=== PATIENT | male | born 1955 | race Caucasian/White ===

== ENCOUNTER 2018-09-18 16:00 | Outpatient (RCR) | payer OTHER, SELFPAY ==
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
--- NOTE | 2018-09-13 17:58 | HP.PTREVAL_ITS ---
Sebastian Hawk MD, It has been my pleasure to treat MARGARITA PEREZ over the last 3 visits for SCIATICA. Please see the progress note below for an update on the physical therapy plan of care! Subjective: PATIENT REPORTS THAT SINCE HE WAS HERE LAST TIME HE FOLLOWED UP WITH HIS FAMILY PHYSICIAN, HAD AN MRI AFTER ABOUT 5 WEEKS AND REFERRED HIMSELF TO A SURGEON. PATIENT REPORTS HIS FAMILY DOCTOR TOLD HIM TO STOP PT AFTER THE MRI. THE SURGEON (DR. LORENZO) TOLD HIM HE HAD 3 CHOICES: SURGERY, DO NOTHING OR TRY A FEW PT VISITS FOR A HOME EX PROGRAM. PATIENT REPORTS HIS FAMILY DOCTOR RECOMMENDED PAIN MGMT BUT HE CHOSE NOT TO PURSUE IT AFTER SEEING THE SURGEON BECAUSE THE SURGEON DID NOT RECOMMEND IT. PATIENT REPORTS HE WANTS TO TRY PT. HE IS LEAVING TO GO [facility] Sep UNTIL DECEMBER 2018. PATIENT REPORTS HE IS FINALLY DOING BETTER. NO PAIN SITTING RIGHT NOW BUT RIGHT LE PAIN WITH WALKING. PATIENT REPORTS HE STILL CAN'T WALK NORMAL - I AM FIGHTING WITH IT. ABLE TO GET DRESSED, GET IN THE CAR AND DRIVE NORMALLY NOW. PATIENT REPORTS HE WAS TOLD L5S1 NERVE COMPRESSION RIGHT AND SPINAL STENOSIS. NEW ORDER REC'D FROM DR. LORENZO WITH DX OF: LUMBAR HERNIATED DISC, FORMAINAL STENOSIS AND LATERAL RECESS STENOSIS OF LUMBAR SPINE 2X'S A WEEK X 2 WEEKS. PATIENT REPORTS HE CAN NOT MAKE IT FOR THAT MANY APPOINTMENTS DUE TO HIS SCHEDULE OF LEAVING TO [facility] AND SEPTEMBER 2018 STARTING NEW DEDUCTIBLE. Objective/Function: PATIENT APPEARS TO BE A GOOD AQUATIC THERAPY CANDIDATE BUT HIS SCHEDULE IS NOT GOING TO ALLOW TIME. I ENCOURAGED HIM TO PURSUE PHYSICAL THERAPY WHEN HE GETS [place]. PATIENT AMBULATES INDEP'LY INTO PT TODAY LIMPING ON THE RIGHT LE WITH RIGHT LE BEND AND INCREASED TRUNK FLEXION. ZULEYMA LE LIGHT TOUCH SENSATION IS INTACT AND SYMMETRICAL. POSITIVE RIGHT LE DURAL SIGN. LLE STRENGTH 5/5 WITH MMT'ING. RIGHT LE: HIP 3+ TO 4-/5, KNEE EXT 4-/5, KNEE FLEX 3+/5, ANKLE DORSIFLEXION 2/5. LUMBAR MVMT LOSS: FLEX - MOD WITH TESTING INCRASING RIGHT POST THIGH PAIN, EXT - LASHAWN AND NO EFFECT ON PAIN WITH TESTING, RIGHT SG - LASHAWN AND INCREASING RIGHT POST THIGH, LEFT SG - MOD WITH NE ON SX'S WI TH TESTING. Plan Plan: PT ABLE WHILE PATIENT IS STILL IN TOWN FOR POSTURE CORRECTION/STRENGTHENING, CORE AND ZULEYMA LE ROM, STRETCHING AND STRENGTHENING TOLERATED/INDICATED AND HEP INSTRUCTION. AT LEAST ONE AQUATIC THERAPY SESSION FOR INDEP EX INSTRUCTION IF PATIENTS SCHEDULE ALLOWS. Goals Goal 1:: DECREASE C/O RIGHT LE SX'S Goal Time Frame: 4-6 Weeks Goal Progress: Progressing Goal 2:: IMPROVE PERSONAL CARE, LIFTING, SITTING, WALKING, STANDING, SLEEP, SOCIAL LIFE, TRAVEL AND HOMEMAKING FUNCTION Goal Time Frame: 4-6 Weeks Goal Progress: Progressing Goal 3:: INSTRUCT IN PROPHYLAXIS Goal Time Frame: 4-6 Weeks Goal Progress: Progressing Anticipated Interventions Patient/Client Instruction: Educate patient on: Condition, Plan of Care, Risk Factors, Benefits of Fitness Program For the Purpose of:: To improve self management Therapeutic Exercise to Include: Strength training, Body mechanics, Postural training, Flexibilty training, Gait and locomotor training, Active ROM, Dynamic Lumbar Stabilization For the Purpose of:: To decrease pain, To increase ROM, To improve muscle performance and motor function, To increase tolerance to activity/condition/position, To improve performance and independence with ADL's, To improve ability of physical actions for home/community/work/leisure, To improve gait and locomotor functions TENS: Yes IF ES: Yes Cryotherapy (ice pack, ice massage): Yes Thermo therapy (hot pack): Yes Ultrasound (thermal/non thermal): Yes For the Purpose of:: To decrease pain, To decrease swelling/inflammation, To increase ROM, To improve nutrient delivery to tissue Please do not hesitate to contact me at [phone] by phone or if you have questions or concerns regarding this new plan of care! Sincerely, Lyn Leyva, PT, Cert MDT
--- NOTE | 2018-09-20 12:40 | HP.PTDCSUM_ITS ---
HP - PT D/C Summary It has been my pleasure to treat MARGARITA PEREZ under orders from Sebastian Hawk MD, for the diagnosis of SCIATICA for a total of 5 visit(s). Discharge Date: Please see the following information for a summary of their discharge status. - Subjective Subjective: PATIENT REPORTS HE FELT A LITTLE BIT BETTER AFTER THE POOL VISIT AND HE HAS BEEN TRYING TO DO THE HOME STRETCHES AND THEY SEEM TO HELP SOME TOO. - Pain LOW BACK Pain Intensity (Out of 10): 1 RIGHT HIP Pain Intensity (Out of 10): 1 RIGHT THIGH Pain Intensity (Out of 10): 0 RIGHT LEG Pain Intensity (Out of 10): 0 RIGHT FOOT Pain Intensity (Out of 10): 0 - Overall Improvement % Improvement: 80 - Objective Objective/Function: PATIENT UNABLE TO RETURN DEMO PROPER KNOWLEGE OF INSTRUCTIONS GIVEN. RECOMMEND FURTHER PT IN [place] DUE TO TRAVEL AND RIGHT LE WEAKNESS. NO CHANGES SINCE SEP 13 ASSISSMENT. - Goals Goal 1:: DECREASE C/O RIGHT LE SX'S Goal Progress: Goal Met Goal 2:: IMPROVE PERSONAL CARE, LIFTING, SITTING, WALKING, STANDING, SLEEP, SOCIAL LIFE, TRAVEL AND HOMEMAKING FUNCTION Goal Progress: Goal Met Goal 3:: INSTRUCT IN PROPHYLAXIS Goal Progress: Goal Met - Plan Plan: HOLD CHART BECAUSE PATIENT WANTS TO DISCUSS POSSIBLY STAYING AND HAVING MORE PT PRIOR TO GOING TO [place]. - D/C Information If there are questions or concerns regarding this patient's physical therapy, please feel free to call me at [phone]. Thank you for the referral of this patient. Sincerely, Lyn Leyva, PT, Cert MDT
== END 2018-09-18 19:00 | disposition home or self-care (01) ==
LOC: PT 16:00
PROVIDERS: Family Provider Internal Medicine; PCP Internal Medicine; Referring Provider Family Medicine; Visit Provider Family Medicine
DX: M54.30 Sciatica, unspecified side (principal)
CPT/HCPCS: 97035; 97113; 97162; 97530

== ENCOUNTER 2019-01-19 17:41 | Emergency (ER) | payer OTHER, SELFPAY ==
[2019-01-19 17:43] VITALS: BP 173/91; PULSE 93; RESP 16; TEMP 36.6; O2SAT 99; BMI 23.0
--- NOTE | 2019-01-19 18:30 | RAD_ITS ---
STUDY: X-RAY - LEFT HAND REASON FOR EXAM: Male, 63 years old. Left hand laceration TECHNIQUE: 3 view(s) of the hand. COMPARISON: None. FINDINGS: Normal radiocarpal articulation. Normal distal radioulnar joint. Normal visualized carpal bones. Normal carpal articulations There is degenerative arthrosis of the carpometacarpal (CMC) articulation of the thumb. Normal second through fifth carpometacarpal joints. Normal metacarpi. Normal metacarpophalangeal joint of the thumb. Normal interphalangeal joint of the thumb. Normal proximal and distal phalanges of the thumb. Normal metacarpophalangeal joints of the second through fifth fingers. Normal proximal and distal interphalangeal joints of the second through fifth fingers. Normal phalanges of the second through fifth fingers. Second digit soft tissue swelling. RAD/Hand Min 3 Views IMPRESSION: No evidence of fracture or radiodense foreign body. Electronically Signed: Martín Leavitt MD at 18:49 EDT Tel , Service support ,
--- NOTE | 2019-01-19 19:05 | ED.DCSUM_ITS ---
- ER Visit Summary Date of Service: 01/19/19 Chief Complaint: Laceration History of Present Illness: The patient is a 63 M who cut his left index finger on a saw. Physical Examination: Hypertensive but otherwise vitals unremarkable. 1.5 cm laceration transverse through the palmar side of the distal phalanx of the left index finger. Nailbed intact. Test Results: X-rays showed no evidence of fracture. Emergency Department Course and Treatment: X-rays performed. Digital block performed. Wound was cleaned. Sutured with 5 simple interrupted sutures. Keflex prophylaxis. Follow-up with primary care. Return right away for signs of infection. Treatment Plan: Keflex prophylaxis, declined tetanus immunization Disposition: Discharge Impression: Laceration left index finger 1.5 cm This note was generated with [employer] dictation software. It may contain incorrect words, spelling, and punctuation that were not noted in review of the chart prior to signing ED Disposition - Plan for ED Patient: Disposition: Home or Assisted Living Instructions: ED Laceration Hand Prescriptions: Cephalexin [Keflex] 500 mg PO Q6 4 Days #16 cap Referrals: Dayne Baptiste [Primary Care Provider] -
--- NOTE | 2019-01-19 19:05 | ED.DEP ---
ED Disposition - Plan for ED Patient: Instructions: ED Laceration Hand Prescriptions: Cephalexin [Keflex] 500 mg PO Q6 4 Days #16 cap Referrals: Dayne Baptiste [Primary Care Provider] -
[2019-01-19] MEDS: Cephalexin 250 MG Capsule 500 MG PO (19:34)
[2019-01-19 19:41] VITALS: BP 160/92; PULSE 75; RESP 16; O2SAT 98
== END 2019-01-19 19:52 | disposition home or self-care (01) ==
PROVIDERS: Emergency Provider Emergency Medicine; Family Provider Internal Medicine; PCP Internal Medicine
DX: S61.211A Laceration without foreign body of left index finger without damage to nail, initial encounter (principal); W31.89XA Contact with other specified machinery, initial encounter; Y93.9 Activity, unspecified; Y92.9 Unspecified place or not applicable
CPT/HCPCS: 12001; 73130; 99284; A4216

== ENCOUNTER → 2021-01-26 16:59 | Outpatient (CLI) | payer MEDICARE, OTHER, SELFPAY ==
--- NOTE | 2021-01-26 17:30 | MRI_ITS ---
STUDY: MRI LUMBAR SPINE WITHOUT CONTRAST REASON FOR EXAM: Male, 65 years old. Sciatica TECHNIQUE: Standardized fat and water weighted pulse sequences were obtained in the sagittal and axial planes. COMPARISON: None FINDINGS: Normal lumbar lordosis. There is no substantial scoliosis. Normal conus medullaris that terminates at the L1. L1-2: There is minimal disc space narrowing and endplate spondylosis. There is no significant disc herniation, central canal or foraminal stenosis. Mild facet arthropathy. L2-3: There is minimal disc space narrowing and endplate spondylosis. There is no significant disc herniation, central canal or foraminal stenosis. Mild facet arthropathy L3-4: There is moderate disc space narrowing and endplates spondylosis. Mild disc bulge and facet arthropathy with mild central canal stenosis. Mild right and mild left foraminal stenosis. L4-5: There is moderate disc space narrowing and endplates spondylosis and edema. Moderate disc bulge and facet arthropathy with mild central canal stenosis. Mild right and mild left foraminal stenosis. L5-S1: There is moderate disc space narrowing and endplates spondylosis. Mild disc bulge and moderate facet arthropathy without significant central canal stenosis. Moderate right and mild left foraminal stenosis. Normal visualized sacral ala. MRI/Spine Lumbar (Routine) IMPRESSION: L5/S1: Moderate right foraminal stenosis. Electronically Signed: Tayler Shanks MD at 11:23 EDT Tel , Service support ,
== END ==
PROVIDERS: PCP Internal Medicine; Referring Provider Internal Medicine; Visit Provider Internal Medicine
DX: M54.30 Sciatica, unspecified side (principal); M48.061 Spinal stenosis, lumbar region without neurogenic claudication
CPT/HCPCS: 72148